=== PATIENT | female | born 1955 | race Caucasian/White ===

== ENCOUNTER 2024-06-15 14:56 | Inpatient (IN) ==
[2024-06-15] MEDS: SODIUM CHLORIDE 0.9% 1,000 ML IV ONE (15:30)
[2024-06-15] MEDS: dilTIAZem HCl 5 MG/ML 5 ML VIAL IV STA (15:32)
[2024-06-15 15:54] LABS: Basophils # (auto) 0.06 K/uL (0.00-0.20); Basophils % (auto) 0.8 %; Eosinophils # (auto) 0.05 K/uL (0.00-0.50); Eosinophils % (auto) 0.7 %; Hematocrit (blood only) 43.7 % (37.0-47.0); Hemoglobin 14.8 g/dl (12.0-16.0); Immature Granulocytes # (auto) 0.01 K/uL (0.01-0.20); Immature Granulocytes % (auto) 0.1 %; Lymphocytes # (auto) 1.81 K/uL (1.20-3.40); Lymphocytes % (auto) 23.8 %; Mean Corpuscular Hemoglobin 28.6 pg (25.0-34.0); Mean Corpuscular Hgb Conc 33.9 g/dL (32.0-36.0); Mean Corpuscular Volume 84.4 fL (80.0-100.0); Mean Platelet Volume 10.2 fL (9.4-12.4); Monocytes # (auto) 0.84 K/uL (0.11-0.59); Neutrophils # (auto) 4.85 K/uL (1.40-6.50); Neutrophils % (auto) 63.6 %; Platelet Count 246 K/uL (130-400); RDW Coefficient of Variation 13.6 % (11.5-14.5); RDW Standard Deviation 41.9 fL (36.4-46.3); Red Blood Count 5.18 M/uL (4.20-5.40); White Blood Count 7.62 K/ul (4.8-10.8)
[2024-06-15] MEDS: ASPIRIN 81 MG CHEW PO STA (15:56)
[2024-06-15] MEDS: dilTIAZem HCl 5 MG/ML 5 ML VIAL IV ONE (15:59)
[2024-06-15] MEDS: SODIUM CHLORIDE 0.9% 500 ML IV STA (16:01)
[2024-06-15] MEDS: dilTIAZem HCL 125 MG in DEXTROSE 5% 100 ML IV SCH (16:06)
[2024-06-15 16:11] LABS: BUN Creatinine Ratio 13.4 (10-20); Calcium 9.7 mg/dl (8.6-10.3); Creatinine Clr Calc Pharmacy 60.6 ml/min; Est GFR (African American) 69.6 ml/min; Magnesium 2.2 mg/dl (1.7-2.4); Potassium 3.6 mmol/L (3.5-5.1)
[2024-06-15 16:18] LABS: Troponin I High Sensitivity 10.1 pg/ml (0-14)
--- NOTE | 2024-06-15 16:26 | XRay Report ---
XR chest 1V portable CLINICAL HISTORY: Dysrhythmia. COMPARISON STUDY: No previous studies for comparison. FINDINGS: Lung volumes are normal. Lungs are clear. There is no pneumothorax or pleural effusion. Car diac size is normal. Mediastinal contours are normal. There is no evidence for pulmonary edema. IMPRESSION: No acute cardiopulmonary findings. ACT 112: Negative or not required by law. Electronically signed by: Carson Reyna M.D. 06/15/2024 4:24 PM
[2024-06-15 16:29] LABS: Partial Thromboplastin Time 28 Seconds (21-31); Prothrombin Time 10.4 Seconds (9.0-12.0)
[2024-06-15 16:45] LABS: D Dimer 710 ug/L FEU (0-500)
[2024-06-15] MEDS: OPTIRAY 320 125ml IV ONE (17:43)
--- NOTE | 2024-06-15 18:20 | CT Scan Report ---
CT angio chest PE protocol CLINICAL HISTORY: ro PE TECHNIQUE: Multidetector row helical CT of the chest was performed with angiographic protocol. Li l and sagittal reformations were obtained. Coronal and sagittal MIPS were obtained from the axial dhruv a set and were submitted for review. Automated dose lowering techniques and/or adjustment according to patient size were utilized for this exam. CT DOSE: 804.7 mGy.cm Comparison: Comparison is made to chest radiograph 06/15/2024 FINDINGS: Lungs and pleura: There is a 4 mm nodule in the left lower lobe (series 4 image 124). Heart and pericardium: Cardiomegaly is seen with biatrial enlargement. Vessels: No evidence of pulmonary embolism. Mediastinum and griffin: Unremarkable. Chest wall and lower neck: Unremarkable. Abdomen: Unremarkable. Bones: Degenerative changes in the thoracic spine. IMPRESSION: 1. No acute abnormality and in particular no evidence of pulmonary embolus. 2. 4 mm nodule in the left lower lobe. ACT 112: Negative or not required by law. Electronically signed by: Dawood Garcia M.D. 06/15/2024 6:18 PM
[2024-06-15] MEDS ORDERED: Heparin IV Adult Wt-Based Low-Dose w/ INITIAL Bolus Protocol IV SCH (18:30)
--- NOTE | 2024-06-15 18:31 | History & Physical Report ---
Date of Service June 15, 2024 Assessment & Plan (1) Atrial fibrillation with RVR: Plan: - Admit to tele - Afib RVR new onset - Check TSH, last was in Mar 2021 =1.95 - Started on cardizem bolus which improved rate and rhythm, drip was not initiated - - will switch to alternative beta cheng with metoprolol 12.5 mg Q6H starting this evening and stop Cardizem - EKG reviewed showing afib as above - Check Bilat LE dopplers - D-dimer elevated, CTA chest is negative for acute PE - Cardiology consulted - will start on heparin gtt for now for anticoagulation (2) Hypertension: Plan: - Home regimen of atenolol 12.5 mg daily - as above (3) HLD (hyperlipidemia): Plan: - Check lipid panel and a1c with am labs for completeness DVT ppx: teds, scds Lines: PIV x 2 FEN/GI: Heart healthy, n.p.o. at midnight CODE: Full code - discussed with pt and at bedside Dispo: From home, likely to remain in the hospital x 1-2 days A total of 75 minutes were spent with greater than 50% of that time face to face with the patient, personally reviewing all current laboratories, imaging studies, past medication reconciliation, outpatient chart review, and discussion with specialists to collaborate care for the patient with attending. Please see attending documentation for corrections and/or additions. History of Present Illness Chief Complaint: Palpitations Primary Care Provider: Lilly Garcia, This is a 68-year-old female with PMHx of HTN, HLD, prediabetes who presents to the hospital with onset of palpitation x 2 days. She denies any pain, no so reness, thought that she felt slightly gaseous distension. It started around 1:30 am and lasted all day. She denies any shortness of breath, recent sick contacts. She took atenolol at 5:00 this morning. Pt has not ever experienced anything like this before. She denies any other significant history other than having her gallbladder out about 9 years ago due to gallstones. EKG reviewed showing patient is in A-fib with RVR, was started on diltiazem bolus with the intention of starting a drip however rhythm/rate became controlled with bolus alone. She was started on a heparin drip per cardiology recommendations. Potassium was replaced. She is on beta-blockade with atenolol 12.5 mg daily at home. Last TSH was obtained in March 2021 which was 1.95. Family Hx: Mother alive and well age 97, Father at age 93 from bladder infection and complications. Allergies Allergy/AdvReac Type Severity Reaction Status Date / Time naproxen Allergy Unknown unknown Verified 10/19/23 02:27 Home Medications Medication Instructions Recorded Confirmed Type atenolol 25 mg tablet 12.5 mg PO QAM 10/19/23 06/15/24 History estradiol 0.01% (0.1 mg/gram) 2 g vaginal .2 NIGHTS A WEEK 06/15/24 06/15/24 History vaginal cream Past Med/Surg History Problem List Atrial fibrillation with RVR (Acute) HLD (hyperlipidemia) Atrial fibrillation with RVR Elevated liver enzymes (Acute) Acute abdominal pain in right upper quadrant (Acute) Medical History Hypertension Gallstones Surgical History H/O colonoscopy "04/30/2014- adenomatous polyp, diverticulosis" Social History Smoking Status: Never smoker Preferred Language: English Feels Safe at Home: Yes Review of Systems Review of Systems: Constitutional: No fever, sweats or chills Eyes: No diplopia, no worsening or blurred vision ENT: normal hearing, no trouble swallowing Respiratory: No cough, sputum, dyspnea at rest or on exertion Cardiovascular: No chest pain, tightness or palpitations Abdomen: No pain, nausea, vomiting, diarrhea or constipation Musculoskeletal: No joint pain, calf pain, swelling Neurologic: No weakness, numbness/tingling, or balance problems Psychiatric: No anxiety or depression Skin: No rash or itch Physical Exam Physical Exam: Please refer to physical addendum for PE. Results & Data Results & Data Vital Signs (Past 12 Hours) Vital Signs Temp Pulse Pulse Resp BP BP Pulse Ox 06/15/24 18:00 109 H 21 117/72 93 06/15/24 17:53 86 18 121/76 97 06/15/24 17:50 103 H 20 121/76 95 06/15/24 17:00 70 14 116/70 94 06/15/24 16:59 84 16 117/76 95 06/15/24 16:48 78 18 117/76 99 06/15/24 16:45 87 16 99/76 L 95 06/15/24 16:30 102 H 16 125/69 95 06/15/24 16:18 71 06/15/24 16:15 87 17 122/73 97 06/15/24 16:12 78 25 H 95 06/15/24 16:00 68 13 121/77 06/15/24 15:57 76 17 121/77 97 06/15/24 15:54 82 12 97 06/15/24 15:41 73 25 H 122/94 96 06/15/24 15:41 97 06/15/24 15:32 71 13 122/94 97 06/15/24 15:27 108 H 19 144/106 H 97 06/15/24 15:09 36.4 C L 137 H 16 141/95 H 99 O2 Del Method 06/15/24 18:00 Room Air 06/15/24 17:53 Room Air 06/15/24 17:50 06/15/24 17:00 06/15/24 16:59 Room Air 06/15/24 16:48 06/15/24 16:45 06/15/24 16:30 06/15/24 16:18 06/15/24 16:15 06/15/24 16:12 06/15/24 16:00 06/15/24 15:57 06/15/24 15:54 06/15/24 15:41 Room Air 06/15/24 15:41 Room Air 06/15/24 15:32 Room Air 06/15/24 15:27 06/15/24 15:09 Room Air Laboratory Results 06/15/24 15:30 WBC 7.62 RBC 5.18 Hgb 14.8 Hct 43.7 MCV 84.4 MCH 28.6 MCHC 33.9 RDW Std Deviation 41.9 RDW Coeff of Bola 13.6 Plt Count 246 MPV 10.2 Immature Gran % (Auto) 0.1 Neut % (Auto) 63.6 Lymph % (Auto) 23.8 Kershaw % (Auto) 11.0 Eos % (Auto) 0.7 Baso % (Auto) 0.8 Neut # (Auto) 4.85 Lymph # (Auto) 1.81 Kershaw # (Auto) 0.84 H Eos # (Auto) 0.05 Baso # (Auto) 0.06 Immature Gran # (Auto) 0.01 PT 10.4 INR 1.0 APTT 28 PTT Ratio 1.0 D-Dimer 710 H* Sodium 140 Potassium 3.6 Chloride 103 Carbon Dioxide 27 Anion Gap 10 BUN 13 Creatinine 0.97 Est Cr Clr Drug Dosing 60.6 Est GFR ( Amer) 69.6 Est GFR (Non-Af Amer) 60.0 BUN/Creatinine Ratio 13.4 Glucose 101 H Calcium 9.7 Magnesium 2.2 Troponin I High Sens 10.1 Diagnostic Findings Chest X-Ray 06/15/24 15:21 XR chest 1V portable CLINICAL HISTORY: Dysrhythmia. COMPARISON STUDY: No previous studies for comparison. FINDINGS: Lung volumes are normal. Lungs are clear. There is no pneumothorax or pleural effusion. Cardiac size is normal. Mediastinal contours are normal. There is no evidence for pulmonary edema. IMPRESSION: No acute cardiopulmonary findings. ACT 112: Negative or not required by law. Electronically signed by: Carson Reyna M.D. 06/15/2024 4:24 PM Chest CTA 06/15/24 16:46 CT angio chest PE protocol CLINICAL HISTORY: ro PE TECHNIQUE: Multidetector row helical CT of the chest was performed with angiographic protocol. Coronal and sagittal reformations were obtained. Coronal and sagittal MIPS were obtained from the axial data set and were submitted for review. Automated dose lowering techniques and/or adjustment according to patient size were utilized for this exam. CT DOSE: 804.7 mGy.cm Comparison: Comparison is made to chest radiograph 06/15/2024 FINDINGS: Lungs and pleura: There is a 4 mm nodule in the left lower lobe (series 4 image 124). Heart and pericardium: Cardiomegaly is seen with biatrial enlargement. Vessels: No evidence of pulmonary embolism. Mediastinum and griffin: Unremarkable. Chest wall and lower neck: Unremarkable. Abdomen: Unremarkable. Bones: Degenerative changes in the thoracic spine. IMPRESSION: 1. No acute abnormality and in particular no evidence of pulmonary embolus. 2. 4 mm nodule in the left lower lobe. ACT 112: Negative or not required by law. Electronically signed by: Dawood Garcia M.D. 06/15/2024 6:18 PM ECG Additional Comments: Reviewed showing Afib RVR with rates of 118 on EKG. QTc is 448. Nonspecific ST and T wave abnormality. Code Status & VTE Plan Code Status Full code - discussed with pt at bedside Supervising Physician Co-Signing Physician Notes Patient is a 68-year-old female with history of hypertension, hyperlipidemia, prediabetes, cholelithiasis and other medical problems presents with history of palpitations for 2 days duration. Patient woke up from sleep due to palpitation s per history. She denies any chest pain, nausea, vomiting, dizziness, shortness of breath. Denies any prior similar episodes in the past. She has been taking her atenolol for blood pressure which is well-controlled per patient. Also denies any alcohol use, diarrhea, fever, chills. Please review HPI for complete details of presentation. Patient was in A-fib RVR while in ED and received Cardizem bolus which controlled her heart rate. I personally reviewed blood work and imaging studies. Noted elevated D-dimer. CTA showed no PE. Doppler studies currently pending. Also noted left lower lobe pulmonary nodule. Physical Exam: Vitals signs as noted above General Appearance:Moderately built and nourished, no apparent distress Head: normocephalic, Atraumatic Eyes: normal inspection, EOMI Neck: supple, Trachea midline Respiratory/Chest: Normal breath sounds, CTA, No accessory muscle use Cardiovascular: Irregularly irregular, tachycardia No murmur Abdomen/GI:Soft, Non tender, Bowel sounds present Extremities/Musculoskeletal:normal inspection, no edema Neurologic/Psych:AAOX3, grossly no focal neurological deficits Skin: normal color, warm A-fib RVR Presented with symptomatic palpitations Will discontinue Cardizem drip due to low blood pressure Hold home atenolol Start on metoprolol 12.5 mg every 6 hours IV Lopressor as needed Continue IV heparin for anticoagulation Cardiology consulted Check resting echo, TSH, trend troponins Elevated D-dimer CTA showed no PE Check venous Dopplers to rule out DVT I personally interviewed and examined at bedside. Patient's care is coordinated with Clara Quinonez PA-C. I have reviewed the advanced practitioner's documentation, and I agree with plan of care. Please refer to the documentation above for details of patient's presentation and for discussion of other issues. I spent a total [id number] coordinating, documenting, and providing care for this patient excluding time spent in the performance of separately billed services. (2) Hypertension Hypertension type: unspecified Qualified Code(s): I10 - Essential (primary) hypertension
--- NOTE | 2024-06-15 18:32 | Emergency Department Note ---
History of Present Illness General Chief Complaint: Cardiac Assessment Stated Complaint: REF BY URGENT CARE, AFIB Time Seen by Provider: 06/15/24 15:27 History of Present Illness Provider Complaint: + rapid heart beat, + palpitations and + atrial fibrillation Onset (ago): 2 day(s) Duration: + Intermittent Context: + occurred during rest Arrhythmia history: no atrial fibrillation, no SVT or no on anti-coagulants Associated symptoms: + near-syncope; no chest pain, no shortness of breath, no syncope, no nausea, no vomiting, no diaphoresis or no cough Home Medications Medication Instructions Recorded Confirmed Type atenolol 25 mg tablet 25 mg PO QAM 10/19/23 10/19/23 History Allergies Allergy/AdvReac Type Severity Reaction Status Date / Time naproxen Allergy Unknown unknown Verified 10/19/23 02:27 Past Med/Surg History Problem List (Updated 06/15/24 @ 18:58 by Clayton Sultana MD) Atrial fibrillation with RVR (Acute) HLD (hyperlipidemia) Atrial fibrillation with RVR Elevated liver enzymes (Acute) Acute abdominal pain in right upper quadrant (Acute) Medical History Hypertension Gallstones Surgical History H/O colonoscopy "04/30/2014- adenomatous polyp, diverticulosis" Social History Smoking Status: Never smoker Preferred Language: [place] Feels Safe at Home: Yes Physical Exam 2 Vital Signs: Vital Signs - 24 hr 06/15/24 15:09 06/15/24 15:27 06/15/24 15:32 Temperature 36.4 C L Temperature Source Temporal Artery Sc an Pulse Rate 137 H 108 H 71 Pulse Rate [Apical ] Pulse Rate from Sp O2 Sensor 98 H 80 Pulse Rhythm [Apic al] Respiratory Rate 16 19 13 Respiratory Effort / Characteristics Respiratory Depth Respiratory Patter n Blood Pressure 141/95 H 144/106 H 122/94 Blood Pressure [Ri ght Arm] Blood Pressure Adina n 110 118 99 Blood Pressure Adina n [Right Arm] Blood Pressure Pos ition [Right Arm] Pulse Oximetry 99 97 97 Oxygen Delivery Me thod Room Air Room Air Sepsis Recent Feve r Within 48 Hours No Sepsis New/Unexpla ined Change in Men tee Status No Sepsis Action Take n by Nursing No Action Required 06/15/24 15:41 06/15/24 15:41 06/15/24 15:54 Temperature Temperature Source Pulse Rate 82 Pulse Rate [Apical ] 73 Pulse Rate from Sp O2 Sensor 82 Pulse Rhythm [Apic al] Irregular Respiratory Rate 25 H 12 Respiratory Effort / Characteristics Non-Labored Sponta neous Respiratory Depth Normal Respiratory Patter n Regular Blood Pressure Blood Pressure [Ri ght Arm] 122/94 Blood Pressure Adina n Blood Pressure Adina n [Right Arm] 103 Blood Pressure Pos ition [Right Arm] Semi-fowlers Pulse Oximetry 97 96 97 Oxygen Delivery Me thod Room Air Room Air Sepsis Recent Feve r Within 48 Hours Sepsis New/Unexpla ined Change in Men tee Status Sepsis Action Take n by Nursing 06/15/24 15:57 06/15/24 16:00 06/15/24 16:12 Temperature Temperature Source Pulse Rate 76 68 78 Pulse Rate [Apical ] Pulse Rate from Sp O2 Sensor 70 85 Pulse Rhythm [Apic al] Respiratory Rate 17 13 25 H Respiratory Effort / Characteristics Respiratory Depth Respiratory Patter n Blood Pressure 121/77 121/77 Blood Pressure [Ri ght Arm] Blood Pressure Adina n 91 82 Blood Pressure Adina n [Right Arm] Blood Pressure Pos ition [Right Arm] Pulse Oximetry 97 95 Oxygen Delivery Me thod Sepsis Recent Feve r Within 48 Hours Sepsis New/Unexpla ined Change in Men tee Status Sepsis Action Take n by Nursing 06/15/24 16:15 06/15/24 16:18 06/15/24 16:30 Temperature Temperature Source Pulse Rate 87 71 102 H Pulse Rate [Apical ] Pulse Rate from Sp O2 Sensor 84 66 Pulse Rhythm [Apic al] Respiratory Rate 17 16 Respiratory Effort / Characteristics Respiratory Depth Respiratory Patter n Blood Pressure 122/73 125/69 Blood Pressure [Ri ght Arm] Blood Pressure Adina n 89 89 Blood Pressure Adina n [Right Arm] Blood Pressure Pos ition [Right Arm] Pulse Oximetry 97 95 Oxygen Delivery Me thod Sepsis Recent Feve r Within 48 Hours Sepsis New/Unexpla ined Change in Men tee Status Sepsis Action Take n by Nursing 06/15/24 16:45 06/15/24 16:48 06/15/24 16:59 Temperature Temperature Source Pulse Rate 87 78 Pulse Rate [Apical ] 84 Pulse Rate from Sp O2 Sensor 71 73 Pulse Rhythm [Apic al] Respiratory Rate 16 18 16 Respiratory Effort / Characteristics Non-Labored Sponta neous Respiratory Depth Normal Respiratory Patter n Regular Blood Pressure 99/76 L 117/76 Blood Pressure [Ri ght Arm] 117/76 Blood Pressure Adina n 94 89 Blood Pressure Adina n [Right Arm] 89 Blood Pressure Pos ition [Right Arm] Pulse Oximetry 95 99 95 Oxygen Delivery Me thod Room Air Sepsis Recent Feve r Within 48 Hours Sepsis New/Unexpla ined Change in Men tee Status Sepsis Action Take n by Nursing 06/15/24 17:00 06/15/24 17:50 06/15/24 17:53 Temperature Temperature Source Pulse Rate 70 103 H Pulse Rate [Apical ] 86 Pulse Rate from Sp O2 Sensor 70 97 H Pulse Rhythm [Apic al] Irregular Respiratory Rate 14 20 18 Respiratory Effort / Characteristics Non-Labored Sponta neous Respiratory Depth Normal Respiratory Patter n Blood Pressure 116/70 121/76 Blood Pressure [Ri ght Arm] 121/76 Blood Pressure Adina n 79 84 Blood Pressure Adina n [Right Arm] 91 Blood Pressure Pos ition [Right Arm] Pulse Oximetry 94 95 97 Oxygen Delivery Me thod Room Air Sepsis Recent Feve r Within 48 Hours Sepsis New/Unexpla ined Change in Men tee Status Sepsis Action Take n by Nursing 06/15/24 18:00 Temperature Temperature Source Pulse Rate 109 H Pulse Rate [Apical ] Pulse Rate from Sp O2 Sensor 82 Pulse Rhythm [Apic al] Respiratory Rate 21 Respiratory Effort / Characteristics Respiratory Depth Respiratory Patter n Blood Pressure 117/72 Blood Pressure [Ri ght Arm] Blood Pressure Adina n 87 Blood Pressure Adina n [Right Arm] Blood Pressure Pos ition [Right Arm] Pulse Oximetry 93 Oxygen Delivery Me thod Room Air Sepsis Recent Feve r Within 48 Hours Sepsis New/Unexpla ined Change in Men tee Status Sepsis Action Take n by Nursing Physical Exam: Physical Exam GENERAL: oriented to person, place, and time. appears well-developed and well- nourished. HENT: Exam performed. - Head: Normocephalic and atraumatic. EYES: Conjunctivae and EOM are normal. Right eye exhibits no discharge. Left eye exhibits no discharge. No scleral icterus. NECK: Normal range of motion. Neck supple. No JVD present. CV: Tachycardic rate, irregular rhythm, normal heart sounds and intact distal pulses. There is no peripheral edema. Palpable radial pulses bue. PULM/CHEST: Effort normal and breath sounds normal. No respiratory distress. No stridor. no wheezes. no rales. ABD: The abdomen is soft. There is no tenderness. NEURO: Motor and sensation grossly intact. SKIN: Skin is warm and dry. He is not diaphoretic. PSYCH: normal mood and affect. Behavior is normal. Judgment and thought content normal. Course Course 1527: The patient was evaluated in room B12A. A complete history and physical exam was performed Cardiac monitoring: An order was placed for continuous cardiac monitoring. The monitor shows a rate of 100-140 with atrial fibrilation rhythm interpreted by me IV access was obtained and Cardizem 10 mg IV push was delivered which improved the patient's ventricular rate. 174: Vital signs stable. Labs unremarkable with exception of elevated D-dimer. CTA of the chest pending. Discussed case with Dr. Melendez, both he and I agree. That the patient should be admitted and given her new onset A-fib started on anticoagulation. 1840: Vital signs stable. CT of the chest negative. Patient started on heparin. Patient will be admitted to the [facility] hospitalist team. Discussed with Jena who will admit the patient under Dr. Morse Administered Medications Diltiazem HCl 125 mg/ Dextrose 125 mls @ 5 mls/hr IV .Q24H [facility]; Protocol Stop: 07/15/24 15:44 Last Admin: 06/15/24 16:06 Dose: 5 mg/hr, 5 mls/hr Documented By: ALENA Co-signed By: ESTEFANI Discontinued Medications Aspirin (Aspirin 81 Mg Chew) 324 mg PO NOW STA Stop: 06/15/24 15:38 Last Admin: 06/15/24 15:56 Dose: 324 mg Documented By: ALENA Diltiazem HCl (Diltiazem Hcl 5 Mg/Ml 5 Ml Vial) Confirm Administered Dose 25 mg IV .STK-MED ONE Stop: 06/15/24 15:31 Last Admin: 06/15/24 15:59 Dose: Not Given Documented By: ALENA Diltiazem HCl (Diltiazem Hcl 5 Mg/Ml 5 Ml Vial) 10 mg IV NOW STA Stop: 06/15/24 15:50 Last Admin: 06/15/24 15:32 Dose: 10 mg Documented By: ALENA Co-signed By: DARINEL Sodium Chloride (Nss) 500 mls @ 999 mls/hr IV .Q31M STA Stop: 06/15/24 15:51 Last Infusion: 06/15/24 16:41 Dose: Infused Documented By: Admin: 06/15/24 16:01 Dose: 999 mls/hr Documented By: ALENA Sodium Chloride (Nss) 1,000 mls @ 999 mls/hr IV .Q1H1M ONE Stop: 06/15/24 16:38 Last Infusion: 06/15/24 16:41 Dose: Infused Documented By: Admin: 06/15/24 15:30 Dose: 999 mls/hr Documented By: ALENA Ioversol (Optiray 320 125ml) 118 ml IV ONCE ONE Stop: 06/15/24 17:43 Last Admin: 06/15/24 17:43 Dose: 118 ml Documented By: TRUNG Medical Decision Making Laboratory Data Attestation: I reviewed the patient's lab results. 06/15/24 15:30 06/15/24 15:30 Lab Results 06/15/24 Range/Units 15:30 WBC 7.62 (4.8-10.8) K/ul RBC 5.18 (4.20-5.40) M/uL Hgb 14.8 (12.0-16.0) g/dl Hct 43.7 (37.0-47.0) % MCV 84.4 (80.0-100.0) fL MCH 28.6 (25.0-34.0) pg MCHC 33.9 (32.0-36.0) g/dL RDW Std Deviation 41.9 (36.4-46.3) fL RDW Coeff of B[place] 13.6 (11.5-14.5) % Plt Count 246 (130-400) K/uL MPV 10.2 (9.4-12.4) fL Immature Gran % (Auto) 0.1 % Neut % (Auto) 63.6 % Lymph % (Auto) 23.8 % [place] % (Auto) 11.0 % Eos % (Auto) 0.7 % Baso % (Auto) 0.8 % Neut # (Auto) 4.85 (1.40-6.50) K/uL Lymph # (Auto) 1.81 (1.20-3.40) K/uL [place] # (Auto) 0.84 H (0.11-0.59) K/uL Eos # (Auto) 0.05 (0.00-0.50) K/uL Baso # (Auto) 0.06 (0.00-0.20) K/uL Immature Gran # (Auto) 0.01 (0.01-0.20) K/uL PT 10.4 (9.0-12.0) Seconds INR 1.0 (0.9-1.1) APTT 28 (21-31) Seconds PTT Ratio 1.0 D-Dimer 710 H* (0-500) ug/L FEU Sodium 140 (136-145) mmol/L Potassium 3.6 (3.5-5.1) mmol/L Chloride 103 (98-107) mmol/L Carbon Dioxide 27 (21-32) mmol/L Anion Gap 10 (3-11) BUN 13 (6-23) mg/dl Creatinine 0.97 (0.6-1.2) mg/dl Est Cr Clr Drug Dosing 60.6 ml/min Est GFR ( Amer) 69.6 ml/min Est GFR (Non-Af Amer) 60.0 ml/min BUN/Creatinine Ratio 13.4 (10-20) Glucose 101 H (70-99(Fasting)) mg/dl Calcium 9.7 (8.6-10.3) mg/dl Magnesium 2.2 (1.7-2.4) mg/dl Troponin I High Sens 10.1 (0-14) pg/ml Imaging Data Attestation: I personally reviewed and interpreted this imaging study as follows: My Impression: Chest x-ray negative. Airway clear. No pneumothorax. No consolidation. No cardiomegaly or cephalization.. No free air under the diaphragm. No fractures of the skeletal structures. Radiologist's Impression: Chest X-Ray 06/15/24 15:21 XR chest 1V portable CLINICAL HISTORY: Dysrhythmia. COMPARISON STUDY: No previous studies for comparison. FINDINGS: Lung volumes are normal. Lungs are clear. There is no pneumothorax or pleural effusion. Cardiac size is normal. Mediastinal contours are normal. There is no evidence for pulmonary edema. IMPRESSION: No acute cardiopulmonary findings. ACT 112: Negative or not required by law. Electronically signed by: Carson Reyna M.D. 06/15/2024 4:24 PM Chest CTA 06/15/24 16:46 CT angio chest PE protocol CLINICAL HISTORY: ro PE TECHNIQUE: Multidetector row helical CT of the chest was performed with angiographic protocol. Coronal and sagittal reformations were obtained. Coronal and sagittal MIPS were obtained from the axial data set and were submitted for review. Automated dose lowering techniques and/or adjustment according to patient size were utilized for this exam. CT DOSE: 804.7 mGy.cm Comparison: Comparison is made to chest radiograph 06/15/2024 FINDINGS: Lungs and pleura: There is a 4 mm nodule in the left lower lobe (series 4 image 124). Heart and pericardium: Cardiomegaly is seen with biatrial enlargement. Vessels: No evidence of pulmonary embolism. Mediastinum and griffin: Unremarkable. Chest wall and lower neck: Unremarkable. Abdomen: Unremarkable. Bones: Degenerative changes in the thoracic spine. IMPRESSION: 1. No acute abnormality and in particular no evidence of pulmonary embolus. 2. 4 mm nodule in the left lower lobe. ACT 112: Negative or not required by law. Electronically signed by: Dawood Garcia M.D. 06/15/2024 6:18 PM ECG Data Attestation: I personally reviewed and interpreted this ECG as follows: Additional Comments: EKG #1 at 1519: Atrial fibrillation with a rate of 118. QRS [address] elevation or ST depression. EKG #2 at 1553 status post Cardizem 10 mg IV bolus: Atrial fibrillation with rate of 72. QRS and QTc intervals within normal limits. No ST elevation or ST depression. [facility] Narrative 1527: The patient was evaluated in room B12A. A complete history and physical exam was performed Cardiac monitoring: An order was placed for continuous cardiac monitoring. The monitor shows a rate of 100-140 with atrial fibrilation rhythm interpreted by me IV access was obtained and Cardizem 10 mg IV push was delivered which improved the patient's ventricular rate. 1742: Vital signs stable. Labs unremarkable with exception of elevated D-dimer. CTA of the chest pending. Discussed case with Dr. Melendez, both he and I agree. That the patient should be admitted and given her new onset A-fib started on anticoagulation. 1840: Vital signs stable. CT of the chest negative. Patient started on heparin. Patient will be admitted to the [facility] Hospitalist team. Discussed with Jena who will admit the patient under Dr. Morse Impression & Plan Atrial fibrillation with RVR Critical Care Time Critical Care Time: Yes Total Critical Care Time: 68 I have personally spent greater than 68 minutes of critical care time in the direct management of this patient. This includes bedside care, interpretation of diagnostic studies, and testing, discussion with consultants, patient, and family members, and other required patient management activities. This 68 minutes is in excess of all separately billable procedures. Discharge Plan Visit Data Chief Complaint: Cardiac Assessment Stated Complaint: REF BY URGENT CARE, AFIB ED Provider: Clayton Sultana Discharge Problem: Atrial fibrillation with RVR Patient Disposition: Admitted As Inpatient Forms Stand Alone Forms: My [facility] Prescriptions Prescriptions: No Action atenolol 25 mg Tablet 25 mg PO QAM Referrals Referrals: Lilly Garcia DO [Primary Care Provider] -
[2024-06-15] MEDS: Heparin IV Adult Wt-Based Low-Dose w/ INITIAL Bolus Protocol IV STA (19:46)
[2024-06-15] MEDS: HEPARIN SOD (PORCINE) 1000 UNIT/ML IV ONE ×2 (19:46→19:53)
[2024-06-15] MEDS: STAT IV Infusion **Titration per Protocol STA (19:47)
[2024-06-15] MEDS: HEPARIN SODIUM/DEXTROSE 25,000 UNITS/500 ML BAG IV SCH (19:54)
[2024-06-15] MEDS: POTASSIUM CHLORIDE CRTAB 20 MEQ TABCR PO STA (20:02)
[2024-06-15] MEDS: METOPROLOL TARTRATE 25 MG TAB PO STA (21:02)
[2024-06-15] MEDS: METOPROLOL TARTRATE 25 MG TAB PO SCH (22:37)
[2024-06-15] MEDS ORDERED: ONDANSETRON INJ 2 MG/ML 2 ML VIAL IV PRN (23:05)
[2024-06-15] MEDS ORDERED: METOPROLOL TARTRATE 1 MG/ML VIAL IV PRN (23:05)
[2024-06-15] MEDS ORDERED: ACETAMINOPHEN 325 MG TAB PO PRN (23:05)
[2024-06-15] MEDS: NSS + 20MEQ KCL 20 MEQ/1,000 ML BAG IV SCH (23:55)
[2024-06-16 01:59] LABS: Hematocrit (blood only) 40.2 % (37.0-47.0); Hemoglobin 13.2 g/dl (12.0-16.0); Mean Corpuscular Hemoglobin 27.8 pg (25.0-34.0); Mean Corpuscular Hgb Conc 32.8 g/dL (32.0-36.0); Mean Corpuscular Volume 84.8 fL (80.0-100.0); Mean Platelet Volume 10.1 fL (9.4-12.4); Platelet Count 218 K/uL (130-400); RDW Coefficient of Variation 13.9 % (11.5-14.5); Red Blood Count 4.74 M/uL (4.20-5.40); White Blood Count 6.63 K/ul (4.8-10.8)
[2024-06-16 02:41] LABS: ANTI-Xa, UFH(UnfractionatedHep 0.39 IU/ml (0.3-0.7)
[2024-06-16 03:20] LABS: BUN Creatinine Ratio 14.1 (10-20); Calcium 8.7 mg/dl (8.6-10.3); Chol HDL Ratio 4.3 (0-5); Creatinine Clr Calc Pharmacy 59.4 ml/min; Est GFR (African American) 67.9 ml/min; Est GFR (Non-African American) 58.6 ml/min; Magnesium 2.1 mg/dl (1.7-2.4); Potassium 3.9 mmol/L (3.5-5.1)
[2024-06-16 03:26] LABS: Troponin I High Sensitivity 8.2 pg/ml (0-14)
[2024-06-16 03:35] LABS: Thyroid Stimulating Hormone 2.643 uIu/ml (0.300-4.500)
[2024-06-16 07:29] LABS: Estimated Average Glucose 120 mg/dl; Hemoglobin A1C 5.8 % (4.5-5.6)
[2024-06-16] MEDS: METOPROLOL SUCC 25MG EXT REL TAB PO SCH (08:51)
[2024-06-16] MEDS: APIXABAN 5 MG TABLET PO SCH (08:51)
[2024-06-16] MEDS: ATORVASTATIN 20 MG TAB PO SCH (08:51)
[2024-06-16] MEDS: POTASSIUM CHLORIDE CRTAB 20 MEQ TABCR PO STA (08:52)
[2024-06-16] MEDS ORDERED: METOPROLOL TARTRATE 25 MG TAB PO SCH (09:00)
--- NOTE | 2024-06-16 09:14 | Cardiology Consultation ---
Date of Consultation June 16, 2024 Assessment & Plan (1) Atrial fibrillation with RVR: (2) Hypertension: (3) HLD (hyperlipidemia): Plan Assessment: 68 year old female with 2 day history of persistent palpitations. Noted to be in Atrial fibrillation with RVR upon presentation with no prior history of arrhythmia. Plan: 1. Atrial fibrillation with RVR -Etiology unclear;however, patient does demonstrate moderate dilatation of the left atrium likely suggesting this is not new. -Mild to moderate mitral regurgitation also a possible contributing factor. -No electrolytes imbalance and renal function stable. No evidence of an acute infectious process. -Elevated D-dimer with negative CTA for PE as well as negative bilateral lower extremity duplex for completeness to exclude DVT -Review of telemetry shows rates controlled. Continue Toprol xl 25mg PO Daily -Discussed pathophysiology of atrial fibrillation with patient and risk for a thrombo-emobolic event. -CHADS2-VASC score of 2 (age, gender and HTN) with recommendation to continue with oral anticoagulation. Continue Eliquis 5mg PO BID -patient will need OP labs in 1 week (CBC, BMP) and should have OP cardiology follow up in 3-4 weeks. will notify office. 2. HTN -Controlled. -Will continue Toprol xl at this time. 3. HLD: -Continue Atorvastatin with recommendation for OP follow up and labs (fasting lipids and LFTs) at 6 months. Case has been discussed with Dr. Melendez. Further recommendations regarding plan of care as per his assessment. I spent a total of 40 minutes on the date of service in preparation, delivery, documentation of the care provided to the patient excluding any time spent in the performance of separately billed services. CAIT Allen [facility] Cardiology [facility] Supervising Physician Co-Signing Physician Notes Patient seen and examined, chart, medications, telemetry reviewed Full assessment and plan as outlined by advanced provider as above. Care and management discussed personally and endorsed 68-year-old female with history of hypertension with [id number] 2 score of 3 presented with newly observed atrial fibrillation likely recent onset Rates better controlled with beta-cheng therapy Previously on low-dose atenolol Currently anticoagulated with Eliquis since this morning Echocardiogram with mild left atrial dilatation and mild to moderate mitral insu fficiency Recommendations as above Metoprolol succinate 37.5 mg/day. Resting heart rates controlled but increase with activity Anticoagulation x 3 weeks and consideration for cardioversion if no spontaneous conversion in interim History of Present Illness Reason for Consultation: Atrial fibrillation with with RVR Requesting Physician: Rosalie causey Attending Physician: Abel Lizarraga DO History of Present Illness HPI: patient is a 68 year-old male with PMHx HTN, HLD and pre-diabetes that presented to the ED with 2 day history of palpitations. patient states that she had been feeling her usual state of health with no recent acute illness, but woke with a feeling of palpitations 2 days prior. She started to drink more water thinking she was dehydrated. She continued with palpitations with despite, hydration, reports persistent, but not worse with exertion. Upon arrival to the ER, EKG obtained demonstrating Atrial fibrillation with RVR rate 118bpm. She received IV Cardizem in the ED, followed by beta cheng and was subsequently transitioned to Metoprolol succinate 25mg PO Daily. She denies any prior history of palpitations and no known history of A-fib. She is resting on the side of bed eating breakfast upon examination. offers no cardiac complaints. reports resolution of palpitations, and no change with exertion. No chest pain or pressure, no shortness of breath, no pre-syncopal or syncopal symptoms. no edema High sensitivity troponin negative x3 D-dimer elevated. CTA chest negative for PE. Venous duplex of lower extremities negative for DVT Echocardiogram 06/16/2024: LVEF 55-60% Mild concentric LVH left ventricular wall motion is normal Left atrium is moderately dilated Mild to moderate MR Trace TR Review of telemetry Atrial fibrillation with rates 80-90's. No acute events overnight. Allergies Allergy/AdvReac Type Severity Reaction Status Date / Time naproxen Allergy Unknown unknown Verified 10/19/23 02:27 Home Medications Medication Instructions Recorded Confirmed Type atenolol 25 mg tablet 12.5 mg PO QAM 10/19/23 06/15/24 History estradiol 0.01% (0.1 mg/gram) 2 g vaginal .2 NIGHTS A WEEK 06/15/24 06/15/24 History vaginal cream Patient History Medical History Hypertension Gallstones Surgical History H/O colonoscopy "04/30/2014- adenomatous polyp, diverticulosis" Social History Smoking Status: Never smoker Hx Alcohol Use: No Hx Substance Use: No Preferred Language: [place] Communication Ability: Effective Body Coverer Required: No Beliefs That Will Affect Care: None Current Living Situation: Family Feels Safe at Home: Yes Safety Concerns: Feels Safe At This Time Assistive Devices: Glasses Physical Exam Constitutional: well developed and well nourished; no acute distress and not ill appearing Neck: normal visual inspection and trachea midline Respiratory: normal respiratory effort, lungs clear to auscultation Cardiovascular: Rate/Rhythm: + irregularly irregular; not tachycardic Heart Sounds: normal S1, normal S2 and + murmur (+I/ systolic murmur) Vessels: dorsalis pedis pulses present; no JVD Extremities: no edema Skin: no rashes, warm and dry Psychiatric: A+Ox3, euthymic affect Results & Data Vital Signs (Past 12 Hours) Vital Signs Temp Pulse Pulse Resp BP Pulse Ox O2 Del Method 06/16/24 07:50 36.3 C L 82 16 116/79 96 Room Air 06/16/24 02:58 36.5 C 76 18 112/80 98 Room Air 06/15/24 23:41 84 06/15/24 23:15 36.5 C 06/15/24 23:09 91 H 18 129/82 93 Room Air 06/15/24 22:36 82 14 105/59 L 95 Room Air Laboratory Results Cardiac Enzymes 06/15/24 06/15/24 06/16/24 Range/Units 15:30 23:15 01:40 Troponin I High Sens 10.1 11.5 8.2 (0-14) pg/ml Coagulation 06/15/24 Range/Units 15:30 PT 10.4 (9.0-12.0) Seconds APTT 28 (21-31) Seconds Lipids 06/16/24 Range/Units 01:40 Triglycerides 80 (0-150) mg/dl Cholesterol 213 H (0-200) mg/dl HDL Cholesterol 50 mg/dl Cholesterol/HDL Ratio 4.3 (0-5) CBC 06/15/24 06/16/24 Range/Units 15:30 01:40 WBC 7.62 6.63 (4.8-10.8) K/ul RBC 5.18 4.74 (4.20-5.40) M/uL Hgb 14.8 13.2 (12.0-16.0) g/dl Hct 43.7 40.2 (37.0-47.0) % Plt Count 246 218 (130-400) K/uL Neut # (Auto) 4.85 (1.40-6.50) K/uL Lymph # (Auto) 1.81 (1.20-3.40) K/uL [place] # (Auto) 0.84 H (0.11-0.59) K/uL Eos # (Auto) 0.05 (0.00-0.50) K/uL Baso # (Auto) 0.06 (0.00-0.20) K/uL Comprehensive Metabolic Panel 06/15/24 06/16/24 Range/Units 15:30 01:40 Sodium 140 141 (136-145) mmol/L Potassium 3.6 3.9 (3.5-5.1) mmol/L Chloride 103 109 H (98-107) mmol/L Carbon Dioxide 27 25 (21-32) mmol/L BUN 13 14 (6-23) mg/dl Creatinine 0.97 0.99 (0.6-1.2) mg/dl Glucose 101 H 106 H (70-99(Fasting)) mg/dl Calcium 9.7 8.7 (8.6-10.3) mg/dl Intake and Output 06/15/24 06/16/24 06/16/24 22:59 06:59 14:59 Intake Total 1500 / 1625 125 / 1625 674.633 / 674.633 Balance 1500 / 1625 125 / 1625 674.633 / 674.633 Intake: IV 1500 / 1625 125 / 1625 674.633 / 674.633 Heparin Sodium/Dextrose 25,000 222.133 / 222.133 units In 500 ml @ 850 UNITS/HR 17 mls/hr IV .Q24H RAMÓN Rx#: [id number] Nss + 20Meq KCl 20 meq In 1,000 452.5 / 452.5 ml @ 50 mls/hr IV .Q20H RAM[facility]N Rx #:[id number] Sodium Chloride 0.9% 1,000 ml @ 1000 / 1000 999 mls/hr IV .Q1H1M ONE Rx#: [id number] Sodium Chloride 0.9% 500 ml @ 500 / 500 999 mls/hr IV .Q31M STA Rx#: [id number] dilTIAZem HCL 125 mg In 125 / 125 Dextrose 5% 100 ml @ 5 MG/HR 5 mls/hr IV .Q24H RAMÓN Rx#: [id number] Other: # Unmeasured Voids 4 Weight 80.6 kg 79.5 kg Weight Measurement Method Chair Scale Built in [facility] (2) Hypertension Hypertension type: unspecified Qualified Code(s): I10 - Essential (primary) hypertension
--- NOTE | 2024-06-16 11:25 | Ultrasound Report ---
BILATERAL LOWER EXTREMITY VENOUS DOPPLER CLINICAL HISTORY: afib rvr new onset, r/o dvt COMPARISON STUDY: No previous studies for comparison. TECHNIQUE: Sonography of the deep venous system of the bilateral lower extremities was performed. Co mpression and augmentation were evaluated. FINDINGS: The bilateral common femoral, superficial femoral and popliteal veins were compressible. A ugmentation was normal. Flow was shown within the deep calf vessels. IMPRESSION: No evidence of deep venous thrombus within the bilateral lower extremities. ACT 112: Negative or not required by law. Electronically signed by: Carson Reyna M.D. 06/16/2024 11:24 AM
[2024-06-16 12:04] VITALS: BP 108/72; PULSE 86; RESP 20; TEMP 97.9; O2SAT 93
--- NOTE | 2024-06-16 13:18 | Electrocardiogram Report ---
Test Reason : Blood Pressure : */* mmHG Vent. Rate : 118 BPM Atrial Rate : * BPM P-R Int : * ms QRS Dur : 78 ms QT Int : 320 ms P-R-T Axes : * -11 94 degrees QTcB Int : 448 ms Atrial fibrillation with rapid ventricular response with premature ventricular or aberrantly conducte d complexes Nonspecific ST and T wave abnormality Abnormal ECG When compared with ECG of 19-Oct-2023 02:41, Atrial fibrillation has replaced Sinus rhythm Vent. rate has increased by [address] now depressed in Anterior leads Confirmed by Gamaliel Gamez ([id number]) on 06/16/2024 1:18:16 PM Referred By: Confirmed By: Gamaliel Gamez
--- NOTE | 2024-06-16 13:53 | Electrocardiogram Report ---
Test Reason : Blood Pressure : */* mmHG Vent. Rate : 72 BPM Atrial Rate : 163 BPM P-R Int : * ms QRS Dur : 78 ms QT Int : 390 ms P-R-T Axes : * 1 32 degrees QTcB Int : 427 ms Atrial fibrillation Abnormal ECG When compared with ECG of 15-Jun-2024 15:19, (unconfirmed) Vent. rate has decreased by 46 bpm Non-specific change in ST segment in Lateral leads Nonspecific T wave abnormality no longer evident in Lateral leads Confirmed by Gamaliel Gamez ([id number]) on 06/16/2024 1:53:02 PM Referred By: REFERRED SELF Confirmed By: Gamaliel Gamez
--- NOTE | 2024-06-16 14:06 | Discharge Summary ---
Discharge Summary Date of Service June 16, 2024 Principal Dx & Hospital Course #1 = Principal Diagnosis (1) Atrial fibrillation with RVR: (2) Hypertension: (3) HLD (hyperlipidemia): (4) Prediabetes: Plan Patient presented to the emergency room from PCPs office with atrial fibrillation and palpitations. Noted to be in rapid ventricular response. Patient was cared for in the hospital and monitored unit. She was given IV bolus of Cardizem in the ED and her rates easily came under control she was continued on oral metoprolol. She was also started on IV heparin for anticoagulation. The following morning her vital signs were stable. Her atrial fibrillation was well-controlled. She was converted to metoprolol succinate and transition to oral Eliquis. Patient was evaluated part cardiology. They agreed with the treatment plan. Echocardiogram was performed showed normal ejection fraction with some dilated atria. Patient was monitored throughout the day. Her symptoms of palpitations had completely resolved. Blood pressures were stable and rates were controlled. She will be discharged home with the Toprol and Eliquis. Cardiology will coordinate outpatient labs and office visit follow-up. During hospitalization the patient also was noted to have some mild hyperglycemia and lipid panel that showed dyslipidemia. Discussed statin therapy with the patient. She states that she has been closely monitoring this and working on this with her PCP and would the for taking any statin therapy until she talks to her PCP. Hemoglobin A1c was 5.8% slightly elevated indicative of possible prediabetes encourage dietary modification and continued monitoring through her PCP. Notes For Next Care Provider Follow-up with cardiology as coordinated through their office Discussed possible treatment for dyslipidemia Continue to monitor glucose for prediabetes Medication Changes From Visit Atenolol discontinued Toprol XL started for rate control Eliquis started for secondary stroke prevention Admission HPI Per Admitting Provider This is a 68-year-old female with PMHx of HTN, HLD, prediabetes who presents to the hospital with onset of palpitation x 2 days. She denies any pain, no soreness, thought that she felt slightly gaseous distension. It started around 1:30 am and lasted all day. She denies any shortness of breath, recent sick contacts. She took atenolol at 5:00 this morning. Pt has not ever experienced anything like this before. She denies any other significant history other than having her gallbladder out about 9 years ago due to gallstones. EKG reviewed showing patient is in A-fib with RVR, was started on diltiazem bolus with the intention of starting a drip however rhythm/rate became controlled with bolus alone. She was started on a heparin drip per cardiology recommendations. Potassium was replaced. She is on beta-blockade with atenolol 12.5 mg daily at home. Last TSH was obtained in March 2021 which was 1.95. Family Hx: Mother alive and well age 97, Father at age 93 from bladder i nfection and complications. Admission Exam Per Admitting Provider I refer you to the H&P Discharge Exam Constitutional: Alert HEENT: Mucous membranes moist. Lungs: Clear to auscultation, decreased, no wheezes rales or rhonchi CV: S1-S2, irregular, controlled rate, no murmur Abdomen: Soft, nontender, nondistended Extremities: No significant edema Neuro: No focal deficits Psych: Cooperative, normal mood Updated Medication List Medication Instructions Recorded Confirmed Type atenolol 25 mg tablet 12.5 mg PO QAM 10/19/23 06/15/24 History estradiol 0.01% (0.1 mg/gram) 2 g vaginal .2 NIGHTS A WEEK 06/15/24 06/15/24 History vaginal cream apixaban 5 mg tablet (Eliquis) 5 mg PO BID 30 days #60 tabs 06/16/24 Rx metoprolol succinate 25 mg 37.5 mg (1.5 x 25 mg) PO QAM 30 06/16/24 Rx tablet,extended release 24 hr days #45 tabs Hospital Stay Data Consultations 06/15/24 18:23 ED Decision to Admit Stat 06/15/24 23:05 Consult Cardiology Routine Diagnostic Imagining Performed 06/15/24 16:46 CT angio chest PE protocol Stat 06/16/24 US venous doppler LE BI Routine Reviewed imaging, laboratory and diagnostic studies. Pertinent findings as below. Echocardiogram normal ejection fraction, dilated atria, no pulm hypertension, I refer you to the full report for details Lower extremity ultrasound negative for DVT Hemoglobin A1c 5.8% Total cholesterol 213 LDL 147 HDL 50 TSH 2.63 Troponins negative x 3 sets EKG from today, atrial fibrillation controlled ventricular response Pending Results Patient Have Any Pending Studies at Discharge: No Discharge Instructions Given to Patient (Per Discharging Provider) Get blood tests as recommended by cardiology in 1 week Follow-up with cardiology in approximately 3 to 4 weeks Discussed with your primary care provider monitoring your glucose levels and any additional treatments that may be needed Discussed with your primary care provider treatment for your hyperlipidemia Total Time Total Time Spent Total Time Spent (In Minutes): 39
[2024-06-17] MEDS ORDERED: METOPROLOL SUCC 25MG EXT REL TAB PO SCH (09:00)
== END 2024-06-16 15:30 | disposition home or self-care (01) | DRG 310 ==
LOC: ED 14:56 → SUATTDRO 18:40 → EDINP 18:40 → 4W 23:02